=== PATIENT | male | born 1980 | race American Indian/Alaskan Native ===

== ENCOUNTER 2018-08-27 17:59 | Emergency (ER) | payer SELFPAY ==
--- NOTE | 2018-08-27 19:10 | Emergency Department Report ---
ED Psych HPI - General Chief Complaint: Psych Stated Complaint: MH EVAL Time Seen by Provider: 08/27/18 18:45 Source: police Mode of arrival: Ambulatory - History of Present Illness MD Complaint: suicidal ideation -: days(s) (3) Associated Psychiatric Symptoms: depression, suicidal ideation Quality: constant Improves With: none Worsens With: none Associated Symptoms: denies other symptoms Details of Plan: States he has not planned however he states he hates his life and he wishes he were - Related Data Home Medications Medication Instructions Recorded Confirmed Last Taken ALBUTEROL Inhaler (OR & NICU) 1 puff IH Q6H PRN 04/20/13 08/27/18 Unknown [ProAir HFA Inhaler] Allergies Allergy/AdvReac Type Severity Reaction Status Date / Time No Known Allergies Allergy Unverified 03/04/17 16:25 ED Review of Systems ROS: Stated complaint: MH EVAL Other details as noted in HPI Comment: All other systems reviewed and negative ED Past Medical Hx - Past Medical History Previous Medical History?: Yes Hx Psychiatric Treatment: Yes (bipolar) Hx Asthma: Yes - Surgical History Past Surgical History?: No - Social History Smoking Status: Never Smoker Substance Use Type: None - Medications Home Medications: Home Medications Medication Instructions Recorded Confirmed Last Taken Type ALBUTEROL Inhaler (OR & NICU) 1 puff IH Q6H PRN 04/20/13 08/27/18 Unknown History [ProAir HFA Inhaler] ED Physical Exam - General Limitations: No Limitations General appearance: alert, in no apparent distress - Head Head exam: Present: atraumatic, normocephalic - Eye Eye exam: Present: normal appearance - ENT ENT exam: Present: mucous membranes moist - Neck Neck exam: Present: normal inspection - Respiratory Respiratory exam: Present: normal lung sounds bilaterally. Absent: respiratory distress, wheezes, rales, rhonchi - Cardiovascular Cardiovascular Exam: Present: regular rate, normal rhythm. Absent: systolic murmur, diastolic murmur, rubs, gallop - GI/Abdominal GI/Abdominal exam: Present: soft, normal bowel sounds. Absent: distended, tenderness, guarding, rebound - Rectal Rectal exam: Present: deferred - Extremities Exam Extremities exam: Present: normal inspection - Back Exam Back exam: Present: normal inspection - Neurological Exam Neurological exam: Present: alert, oriented X3 - Psychiatric Psychiatric exam: Present: normal affect, normal mood - Skin Skin exam: Present: warm, dry, intact, normal color. Absent: rash ED Course Vital Signs 08/27/18 08/27/18 18:18 19:19 Temperature 98.1 F 98.5 F Pulse Rate 89 83 Respiratory 18 18 Rate Blood Pressure 132/84 144/82 [Left] O2 Sat by Pulse 95 96 Oximetry ED Medical Decision Making - Lab Data Result diagrams: 08/27/18 19:09 08/27/18 19: Lab Results 08/27/18 08/27/18 08/27/18 Range/Units 19:09 19: 19:09 WBC 5.6 (4.5-11.0) K/mm3 RBC 5.34 H (3.65-5.03) M/mm3 Hgb 14.6 (11.8-15.2) gm/dl Hct 42.7 (35.5-45.6) % MCV 80 L (84-94) fl MCH 27 L (28-32) pg MCHC 34 (32-34) % RDW 13.5 (13.2-15.2) % Plt Count 235 (140-440) K/mm3 Lymph % (Auto) 26.9 (13.4-35.0) % Garfield % (Auto) 7.5 H (0.0-7.3) % Eos % (Auto) 1.4 (0.0-4.3) % Baso % (Auto) 0.3 (0.0-1.8) % Lymph # 1.5 (1.2-5.4) K/mm3 Garfield # 0.4 (0.0-0.8) K/mm3 Eos # 0.1 (0.0-0.4) K/mm3 Baso # 0.0 (0.0-0.1) K/mm3 Seg Neutrophils % 63.9 (40.0-70.0) % Seg Neutrophils # 3.6 (1.8-7.7) K/mm3 Sodium 142 (137-145) mmol/L Potassium 4.1 (3.6-5.0) mmol/L Chloride 103.5 (98-107) mmol/L Carbon Dioxide 27 (22-30) mmol/L Anion Gap 16 mmol/L BUN 8 L (9-20) mg/dL Creatinine 0.8 (0.8-1.5) mg/dL Estimated GFR > 60 ml/min BUN/Creatinine Ratio 10 % Glucose 85 (75-100) mg/dL Calcium 8.9 (8.4-10.2) mg/dL Salicylates < 0.3 L (2.8-20.0) mg/dL Acetaminophen (10.0-30.0) ug/mL Plasma/Serum Alcohol (0-0.07) % 08/27/18 08/27/18 Range/Units 19:09 19:09 WBC (4.5-11.0) K/mm3 RBC (3.65-5.03) M/mm3 Hgb (11.8-15.2) gm/dl Hct (35.5-45.6) % MCV (84-94) fl MCH (28-32) pg MCHC (32-34) % RDW (13.2-15.2) % Plt Count (140-440) K/mm3 Lymph % (Auto) (13.4-35.0) % Garfield % (Auto) (0.0-7.3) % Eos % (Auto) (0.0-4.3) % Baso % (Auto) (0.0-1.8) % Lymph # (1.2-5.4) K/mm3 Garfield # (0.0-0.8) K/mm3 Eos # (0.0-0.4) K/mm3 Baso # (0.0-0.1) K/mm3 Seg Neutrophils % (40.0-70.0) % Seg Neutrophils # (1.8-7.7) K/mm3 Sodium (137-145) mmol/L Potassium (3.6-5.0) mmol/L Chloride (98-107) mmol/L Carbon Dioxide (22-30) mmol/L Anion Gap mmol/L BUN (9-20) mg/dL Creatinine (0.8-1.5) mg/dL Estimated GFR ml/min BUN/Creatinine Ratio % Glucose (75-100) mg/dL Calcium (8.4-10.2) mg/dL Salicylates (2.8-20.0) mg/dL Acetaminophen < 5.0 L (10.0-30.0) ug/mL Plasma/Serum Alcohol < 0.01 (0-0.07) % - Medical Decision Making Patient is medically cleared for psychiatric placement. Critical care attestation.: If time is entered above; I have spent that time in minutes in the direct care of this critically ill patient, excluding procedure time. ED Disposition Clinical Impression: Suicidal ideations, Encounter for psychiatric assessment Disposition: DC/TX-65 PSY HOSP/PSY UNIT Is pt being admited?: No Does the pt Need Aspirin: No Condition: Stable Time of Disposition: 21:07
[2018-08-27 19:20] LABS: Basophils % (Auto) 0.3 % (0.0-1.8); Eosinophils # (Auto) 0.1 K/mm3 (0.0-0.4); Eosinophils % (Auto) 1.4 % (0.0-4.3); Hematocrit 42.7 % (35.5-45.6); Hemoglobin 14.6 gm/dl (11.8-15.2); Lymphocytes # (Auto) 1.5 K/mm3 (1.2-5.4); Lymphocytes % (Auto) 26.9 % (13.4-35.0); Mean Corpuscular HGB Conc 34 % (32-34); Mean Corpuscular Volume 80 fl (84-94); Monocytes # (Auto) 0.4 K/mm3 (0.0-0.8); Monocytes % (Auto) 7.5 % (0.0-7.3); Platelet Count 235 K/mm3 (140-440); Red Blood Count 5.34 M/mm3 (3.65-5.03); Red Cell Distribution Width 13.5 % (13.2-15.2)
[2018-08-27 19:38] LABS: BUN/Creatinine Ratio 10; Blood Urea Nitrogen 8 mg/dL (9-20); Calcium 8.9 mg/dL (8.4-10.2); Hemolysis Index 3
[2018-08-28 03:08] LABS: Bilirubin,Urine NEG (Negative); Blood,Urine NEG (Negative); Color,Urine Yellow (Yellow); Mucus,Urine FEW /HPF
[2018-08-28 03:39] LABS: Amphetamine Screen,Urine PRESUMPTIVE NEGATIVE; Benzodiazepines Screen,Urine PRESUMPTIVE NEGATIVE; Cannabinoid Screen,Urine PRESUMPTIVE NEGATIVE; Cocaine Screen,Urine PRESUMPTIVE NEGATIVE; Methadone Screen,Urine PRESUMPTIVE NEGATIVE; Opiate Screen,Urine PRESUMPTIVE NEGATIVE
--- NOTE | 2018-08-28 13:16 | Consultation ---
History of Present Illness - Reason for Consult Consult date: 08/28/18 Reason for consult: Mental Health Evaluation Requesting physician: MARCELLO MORRIS - Chief Complaint Chief complaint: "I have a lot going on" - History of Present Psychiatric Illness 38 y.o. AA male who presented to the ER for SI's. Today the patient is calm during the assessment. He stated that he is going through a lot at this time. He stated that he was fired from his job because he got angry with a coworker. Also, he stated that he broke up with his girlfriend most recently. He stated that his life is "worthless." He stated that he was suicidal yesterday, but would not confirm or deny SI's when asked during the interview. He stated that he take Abilify for his mood, but prefer another mediation. He stated, "Abilify do not agree with me." He acknowledged a past suicide attempt with placement to a mental health facility. He denies HI's and AVH's. He denies a poor appetite, but acknowledge erratic sleep. He denies recreational drug use and alcohol consumption (etoh). Medications and Allergies Allergies Allergy/AdvReac Type Severity Reaction Status Date / Time No Known Allergies Allergy Unverified 03/04/17 16:25 Home Medications Medication Instructions Recorded Confirmed Last Taken Type ALBUTEROL Inhaler (OR & NICU) 1 puff IH Q6H PRN 04/20/13 08/27/18 Unknown History [ProAir HFA Inhaler] Past psychiatric history - Past Medical History Past Medical History: other (Asthma) Past Surgical History: No surgical history - past Psychiatric treatment and history psychiatric treatment history: Several inpatient psy settings. Denies a fam psy hx. - Social History Social history: lives with family Mental Status Exam - Vital signs Last Vital Signs Temp 97.9 F 08/28/18 07:49 Pulse 90 08/28/18 07:49 Resp 18 08/28/18 07:49 BP 128/73 08/28/18 07:49 Pulse Ox 98 08/28/18 07:49 - Exam Narrative exam: MSE: Appearance: calm Behavior: regular eye contact Speech: regular rate and tone Mood: labile Affect: congruent to mood Thought Process: circumstantial Thought Content: denies HI's and AVH's Motor Activity: ambulatory Cognition: A/O x3 Insight: variable Judgment: variable Results Result Diagrams: 08/27/18 19:09 08/27/18 19:09 Abnormal lab results 08/27/18 08/27/18 08/27/18 Range/Units 19:09 19: 19:09 RBC 5.34 H (3.65-5.03) M/mm3 MCV 80 L (84-94) fl MCH 27 L (28-32) pg [place] % (Auto) 7.5 H (0.0-7.3) % BUN 8 L (9-20) mg/dL Salicylates < 0.3 L (2.8-20.0) mg/dL Acetaminophen (10.0-30.0) ug/mL 08/27/18 Range/Units 19:09 RBC (3.65-5.03) M/mm3 MCV (84-94) fl MCH (28-32) pg [place] % (Auto) (0.0-7.3) % BUN (9-20) mg/dL Salicylates (2.8-20.0) mg/dL Acetaminophen < 5.0 L (10.0-30.0) ug/mL All other labs normal. Assessment and Plan Assessment and plan: Impression: Unspecified Mood DO. Today the patient is calm during the assessment. The patient not confirm or deny SI's. DDx: Bipolar DO Recommendation/Plan: Continue 1013 and start Zyprexa 5 mg PO HS for mood. Discussed possible metabolic side effects of Zyprexa with the patient, he verbalized understanding. Dispo: The patient was referred to inpatient psy services. Staffed with Dr Yaima Christensen.
--- NOTE | 2018-08-29 15:11 | Progress Note ---
Subjective - Reason for Consult Consult date: 08/29/18 Reason for consult: Psychiatric Follow-up Evaluation - Chief Complaint Chief complaint: "I'm alright" Patient is a 38 y.o. AA male who presented to the ER for SI's. Today the patient is calm and cooperative during the assessment. He states, " I feel like I'm nothing anymore and I don't deserve to be here. " He reports appropriate sleep and appetite. He denies HI's, A/VH's, and delusions. He reports medication compliance. No side effects noted/reported. Mental Status Exam - Vital signs Last Vital Signs Temp 97.6 F 08/29/18 14:26 Pulse 88 08/29/18 14:26 Resp 18 08/29/18 14:26 BP 116/82 08/29/18 14:26 Pulse Ox 96 08/29/18 14:26 - Exam Narrative exam: Mental Status Exam Appearance: calm Behavior: regular eye contact Speech: regular rate and tone Mood: " I'm okay" Affect: congruent to mood Thought Process: circumstantial Thought Content: denies HI's and AVH's; + SI's Motor Activity: ambulatory Cognition: A/O x 3 Insight: variable Judgment: variable Assessment and Plan Impression: Unspecified Mood DO. Today the patient is calm and cooperative during the assessment. The patient not confirm or deny SI's. UDS negative. DDx: Bipolar DO Recommendation/Plan: 1. Continue 1013. 2. Continue Zyprexa 5 mg PO HS for mood. Discussed possible metabolic side effects of Zyprexa with the patient, he verbalized understanding. Disposition: The patient was referred to inpatient psychiatric services. Staffed with Dr. Yaima Christensen.
--- NOTE | 2018-08-30 13:45 | Progress Note ---
Subjective - Reason for Consult Consult date: 08/30/18 Reason for consult: Psychiatric Follow-up Evaluation - Chief Complaint Chief complaint: "I feel alright" Patient is a 38 y.o. AA male who presented to the ER for SI's. Today the patient is calm and cooperative during the assessment. He states, " I'm not feeling hopeless anymore. I have to get use to what it's going to be " He reports appropriate sleep and appetite. He denies SI/HI's, A/VH's, and delusions. He reports medication compliance. No side effects noted/reported. Mental Status Exam - Vital signs Last Vital Signs Temp 96.7 F L 08/30/18 08:04 Pulse 78 08/30/18 08:04 Resp 16 08/30/18 09:38 BP 124/85 08/30/18 08:04 Pulse Ox 95 08/30/18 08:04 - Exam Narrative exam: Mental Status Exam Appearance: calm Behavior: regular eye contact Speech: regular rate and tone Mood: " I'm feel alright" Affect: congruent to mood Thought Process: circumstantial Thought Content: denies SI/HI's, A/VH's, and delusions Motor Activity: ambulatory Cognition: A/O x 3 Insight: variable Judgment: variable Assessment and Plan Impression: Unspecified Mood DO. Today the patient is calm and cooperative during the assessment. The patient not confirm or deny SI's. UDS negative. DDx: Bipolar DO Recommendation/Plan: 1. Continue 1013. 2. Continue Zyprexa 7.5 mg PO HS for mood. Discussed possible metabolic side effects of Zyprexa with the patient, he verbalized understanding. Disposition: The patient was referred to inpatient psychiatric services. Staffed with Dr. Yaima Christensen.
--- NOTE | 2018-08-31 08:27 | Progress Note ---
Subjective - Reason for Consult Consult date: 08/31/18 Reason for consult: Psychiatry Follow-up - Chief Complaint Chief complaint: "Things has to get better" 38 y.o. AA male who presented to the ER for SI's. Today the patient is calm and cooperative with a circumstantial thought process during the assessment. He stated that he may have lost his job, but isn't sure. He was informed that he was accepted at [facility] for inpatient psy services. He denies SI/HI's and AVH's. He denies any side effects of hie medication. Mental Status Exam - Vital signs Last Vital Signs Temp 97.5 F L 08/31/18 08:16 Pulse 67 08/31/18 08:16 Resp 18 08/31/18 08:16 BP 141/97 08/31/18 08:16 Pulse Ox 100 08/31/18 08:16 - Exam Narrative exam: MSE: Appearance: calm, cooperative Behavior: regular eye contact Speech: regular rate and tone Mood: "okay" Affect: congruent to mood Thought Process: circumstantial Thought Content: denies SI/HI's and AVH's Motor Activity: ambulatory Cognition: A/O x3 Insight: variable Judgment: variable Assessment and Plan Impression: Unspecified Mood DO. Today the patient is calm during the assessment. DDx: Bipolar DO Recommendation/Plan: Continue 1013 and Zyprexa 7.5 mg PO HS for mood. Discussed possible metabolic side effects of Zyprexa with the patient, he verbalized understanding. Dispo: The patient was accepted at [facility] for inpatient psy services pending transport time. Staffed with Dr Yaima Christensen.
[2018-09-01 07:41] VITALS: BP 122/76
--- NOTE | 2018-09-01 11:36 | Progress Note ---
Subjective - Reason for Consult Consult date: 09/01/18 Reason for consult: Psychiatry Follow-up - Chief Complaint Chief complaint: "I look forward to leaving" 38 y.o. AA male who presented to the ER for SI's. Today the patient is calm and cooperative during the assessment. He stated that he feels better and look forward to being discharged. He stated that he plan to follow up with outpatient psy services. Per collateral information from the patient's mother Carla Woodward at [phone], she stated that he son can reside with her once he is discharged. She stated that she have spoken with her son the past few days and stated, "He is a lot better." The patient denies SI/HI's and AVH's. He denies any side effects of hie medication. Mental Status Exam - Vital signs Last Vital Signs Temp 97.6 F 09/01/18 07:40 Pulse 81 09/01/18 07:40 Resp 18 09/01/18 07:40 BP 122/76 09/01/18 07:40 Pulse Ox 97 09/01/18 07:40 - Exam Narrative exam: MSE: Appearance: calm, cooperative Behavior: regular eye contact Speech: regular rate and tone Mood: "okay" Affect: congruent to mood Thought Process: more organized Thought Content: denies SI/HI's and AVH's Motor Activity: ambulatory Cognition: A/O x3 Insight: appropriate Judgment: appropriate Assessment and Plan Impression: Unspecified Mood DO. Today the patient is calm during the assessment. The patient is no threat to self. DDx: Bipolar DO Recommendation/Plan: Rescind 1013 and continue Zyprexa 7.5 mg PO HS for mood. Discussed possible metabolic side effects of Zyprexa with the patient, he verbalized understanding. Dispo: The patient can follow up with [facility] for outpatient psy services. Will staff with Dr Yaima Christensen.
== END 2018-09-01 12:42 | disposition home or self-care (01) ==
LOC: EEVIPCON 17:59 → ED 17:59
DX: F32.9 Major depressive disorder, single episode, unspecified (principal); R45.81 Low self-esteem; J45.909 Unspecified asthma, uncomplicated
CPT/HCPCS: 36415; 80048; 80307; 81001; 85025; 99284; G0480; 80320